=== PATIENT | male | born 1965 | race African-American/Black ===

== ENCOUNTER 2024-09-08 23:59 | Inpatient (IN) | payer BC, MEDICAID, OTHER ==
[~2024-09-08] VITALS: Ht 165.1 cm; Wt 674.5 kg
[2024-09-09] MEDS: IBUPROFEN 600MG TABLET PO ONE (00:30)
[2024-09-09] MEDS ORDERED: VANCOMYCIN 1000MG/250ML 250 ML IV ONE (00:30)
[2024-09-09] MEDS ORDERED: VANCOMYCIN 1GM PMX (XELLIA) 200 ML IV NR (00:45)
[2024-09-09 00:51] LABS: BASOPHILS % 0.4 % (0.0-2.0); EOSINOPHILS % 2.9 % (0.0-5.0); HEMATOCRIT. 43.6 % (42.0-52.0); HEMOGLOBIN. 14.5 g/dL (14.0-18.0); LYMPHOCYTES % 22.4 % (20.0-50.0); MEAN CORPUSCULAR HEMOGLOBIN 31.1 pg (28.0-32.0); MEAN CORPUSCULAR HGB CONC 33.2 g/dL (31.0-37.0); MEAN CORPUSCULAR VOLUME 93.6 fL (80.0-94.0); MEAN PLATELET VOLUME 7.2 fl (7.4-10.4); MONOCYTES % 8.2 % (2.0-8.0); NEUTROPHILS % 66.1 % (40.0-76.0); PLATELET 209 x1000/uL (130-400); RED BLOOD CELL COUNT 4.65 mill/uL (4.7-6.1); RED CELL DISTRIBUTION WIDTH 13.6 % (11.6-14.6); WHITE BLOOD COUNT 7.8 x1000/uL (4.5-11.0)
[2024-09-09 00:58] LABS: CHLORIDE 107 mEq/L (98-107); POTASSIUM 3.9 mEq/L (3.5-5.1); SODIUM 141 mEq/L (136-145)
[2024-09-09 00:59] LABS: CALCIUM 9.4 mg/dL (8.7-10.4); CARBON DIOXIDE 30 mEq/L (21-32)
[2024-09-09 01:03] LABS: URIC ACID 5.2 mg/dL (3.7-9.2)
[2024-09-09 01:04] LABS: CREATININE 1.1 mg/dL (0.6-1.3); GLUCOSE 108 mg/dL (70-105); UREA NITROGEN BLOOD 10 mg/dL (9-23)
[2024-09-09 01:06] LABS: ALANINE AMINOTRANSFERASE 22 IU/L (10-49); ALBUMIN 4.1 g/dL (3.2-4.8); ASPARTATE AMINOTRANSFERASE 25 IU/L (<34); BILIRUBIN TOTAL 0.2 mg/dL (0.1-1.0); PROTEIN TOTAL 6.9 g/dL (6.0-8.3)
[2024-09-09] MEDS: MORPHINE SULFATE 4 MG/ML INJ (FOR IV/IM USE) IV ONE (01:15)
[2024-09-09 01:31] LABS: INR 0.9; PROTHROMBIN TIME 10.5 sec (9.6-11.0)
[2024-09-09] MEDS: IBUPROFEN 600MG TABLET PO NR (01:57)
[2024-09-09 02:10] LABS: ERYTHROCYTE SEDIMENTATION RATE 8 mm/hr (0-20)
[2024-09-09] MEDS ORDERED: ONDANSETRON HCL 4MG/2ML INJ IV PRN (02:15)
[2024-09-09] MEDS ORDERED: GUAIFENESIN 200MG/10ML SUGAR FREE UDC PO PRN (02:15)
[2024-09-09] MEDS ORDERED: DOCUSATE SODIUM 100MG CAPSULE PO PRN (02:15)
[2024-09-09] MEDS ORDERED: ACETAMINOPHEN 325MG TABLET PO PRN ×2 (02:15)
[2024-09-09] MEDS ORDERED: IPRATROPIUM/ALBUTEROL 0.5-3(2.5)MG/3ML NEB HHN PRN (02:15)
[2024-09-09 04:30] VITALS: BP 132/72; PULSE 73; RESP 18; TEMP 37.28076; O2SAT 99
[2024-09-09] MEDS: MORPHINE SULFATE 2 MG/ML INJ (NOT FOR IM USE) IV PRN (05:58)
[2024-09-09] MEDS: DEXT 5%/0.45% NACL 1000ML 1,000 ML IV SCH (07:32)
[2024-09-09] MEDS: IPRATROPIUM/ALBUTEROL 0.5-3(2.5)MG/3ML NEB HHN SCH (08:15)
[2024-09-09 10:10] LABS: BASOPHILS % 0.2 % (0.0-2.0); EOSINOPHILS % 1.7 % (0.0-5.0); HEMATOCRIT. 46.4 % (42.0-52.0); HEMOGLOBIN. 14.7 g/dL (14.0-18.0); LYMPHOCYTES % 12.4 % (20.0-50.0); MEAN CORPUSCULAR HEMOGLOBIN 29.6 pg (28.0-32.0); MEAN CORPUSCULAR HGB CONC 31.8 g/dL (31.0-37.0); MEAN CORPUSCULAR VOLUME 93.2 fL (80.0-94.0); MEAN PLATELET VOLUME 7.8 fl (7.4-10.4); MONOCYTES % 6.6 % (2.0-8.0); NEUTROPHILS % 79.1 % (40.0-76.0); PLATELET 192 x1000/uL (130-400); RED BLOOD CELL COUNT 4.98 mill/uL (4.7-6.1)
[2024-09-09 10:12] LABS: CHLORIDE 108 mEq/L (98-107); POTASSIUM 4.2 mEq/L (3.5-5.1); SODIUM 141 mEq/L (136-145)
[2024-09-09 10:13] LABS: CARBON DIOXIDE 27 mEq/L (21-32)
[2024-09-09 10:14] LABS: CALCIUM 9.4 mg/dL (8.7-10.4)
[2024-09-09 10:19] LABS: CREATININE 0.9 mg/dL (0.6-1.3); GLUCOSE 78 mg/dL (70-105); UREA NITROGEN BLOOD 9 mg/dL (9-23)
[2024-09-09 12:00] VITALS: BP 118/64; PULSE 68; RESP 18; TEMP 36.72516; O2SAT 100
[2024-09-09] MEDS: ENOXAPARIN 40MG/0.4ML SYR SUBCUT SCH (13:13)
[2024-09-09 13:30] VITALS: BP 130/74; PULSE 68; RESP 18; TEMP 36.5848
[2024-09-09] MEDS ORDERED: NALOXONE HCL 0.4MG/ML VIAL IV PRN (14:15)
[2024-09-09 16:00] VITALS: BP 125/70; PULSE 71; RESP 18; TEMP 36.50292; O2SAT 99
[2024-09-09 20:00] VITALS: BP 127/81; PULSE 106; RESP 18; TEMP 36.114; O2SAT 100
[2024-09-09] MEDS: FAMOTIDINE 20MG TABLET PO SCH (20:30)
[2024-09-09 22:47] LABS: CLARITY URINE CLEAR (CLEAR); COLOR URINE YELLOW (YELLOW); GLUCOSE URINE NEGATIVE (NEGATIVE); KETONES URINE NEGATIVE (NEGATIVE); LEUKOCYTE ESTERASE URINE NEGATIVE (NEGATIVE); NITRITE URINE NEGATIVE (NEGATIVE); OCCULT BLOOD URINE NEGATIVE (NEGATIVE); PROTEIN URINE NEGATIVE (NEGATIVE); SPECIFIC GRAVITY URINE 1.011 (1.005-1.030); UROBILINOGEN URINE 0.2 E.U./dL (0.2-1.0)
[2024-09-09 23:13] LABS: *AMPHETAMINES SCREEN URINE NEGATIVE (NEGATIVE); *BARBITURATES SCREEN URINE NEGATIVE (NEGATIVE); *BENZODIAZEPINES SCREEN URINE NEGATIVE (NEGATIVE); *COCAINE SCREEN URINE PRESUMPTIVE POSITIVE (NEGATIVE); CANNABINOID URINE SCREEN NEGATIVE (NEGATIVE); ECSTASY MDMA SCREEN URINE NEGATIVE (NEGATIVE); METHADONE URINE SCREEN NEGATIVE (NEGATIVE); OPIATES URINE SCREEN NEGATIVE (NEGATIVE); PHENCYCLIDINE URINE SCREEN NEGATIVE (NEGATIVE)
[2024-09-10] VITALS: BP 108/63; PULSE 93; RESP 18; TEMP 36.3918; O2SAT 100
[2024-09-10 04:00] VITALS: BP 118/63; PULSE 73; RESP 18; TEMP 36.50292; O2SAT 100
[2024-09-10 07:00] LABS: BASOPHILS % 0.3 % (0.0-2.0); EOSINOPHILS % 1.6 % (0.0-5.0); HEMATOCRIT. 44.2 % (42.0-52.0); HEMOGLOBIN. 14.5 g/dL (14.0-18.0); LYMPHOCYTES % 12.5 % (20.0-50.0); MEAN CORPUSCULAR HEMOGLOBIN 30.4 pg (28.0-32.0); MEAN CORPUSCULAR HGB CONC 32.7 g/dL (31.0-37.0); MEAN CORPUSCULAR VOLUME 92.9 fL (80.0-94.0); MEAN PLATELET VOLUME 7.7 fl (7.4-10.4); MONOCYTES % 9.2 % (2.0-8.0); NEUTROPHILS % 76.4 % (40.0-76.0); PLATELET 199 x1000/uL (130-400); RED BLOOD CELL COUNT 4.76 mill/uL (4.7-6.1); RED CELL DISTRIBUTION WIDTH 13.5 % (11.6-14.6); WHITE BLOOD COUNT 9.9 x1000/uL (4.5-11.0)
[2024-09-10 07:18] LABS: CALCIUM 9.2 mg/dL (8.7-10.4); CHLORIDE 105 mEq/L (98-107); SODIUM 139 mEq/L (136-145)
[2024-09-10 07:19] LABS: CARBON DIOXIDE 26 mEq/L (21-32)
[2024-09-10 07:24] LABS: CREATININE 0.8 mg/dL (0.6-1.3); GLUCOSE 103 mg/dL (70-105); UREA NITROGEN BLOOD 9 mg/dL (9-23)
[2024-09-10 08:00] VITALS: BP 124/70; PULSE 89; RESP 19; TEMP 36.50292; O2SAT 99
[2024-09-10 12:00] VITALS: BP 121/77; PULSE 91; RESP 20; TEMP 36.22512; O2SAT 100
[2024-09-10 14:10] VITALS: BP 121/77; PULSE 91; TEMP 97.2; O2SAT 100
== END 2024-09-10 15:30 | disposition home or self-care (01) | DRG 342 ==
LOC: ER 23:59 → 5WST 09-09 01:10 → EDBEDREQTM 09-09 01:15 → EDBEDREQ 09-09 01:15 → 6WST 09-09 12:15
PROVIDERS: ADMIT Hospitalist; ATTEND Hospitalist
DX: S82.841A Displaced bimalleolar fracture of right lower leg, initial encounter for closed fracture (principal); F19.10 Other psychoactive substance abuse, uncomplicated; Z59.00 Homelessness unspecified; X58.XXXA Exposure to other specified factors, initial encounter; Y93.89 Activity, other specified; Y92.89 Other specified places as the place of occurrence of the external cause; Y99.8 Other external cause status
CPT/HCPCS: 36415; 73610; 73700; 80048; 80053; 80305; 81003; 84550; 85025; 85651; 86850; 86900; 99285; J1650; J2270; J3370

== ENCOUNTER 2024-09-15 01:38 | Emergency (ER) | payer MEDICAID ==
[~2024-09-15] VITALS: Ht 172.7 cm; Wt 78.0 kg
[2024-09-15 01:41] VITALS: TEMP 97.5; O2SAT 97
[2024-09-15 01:55] VITALS: BP 124/72; PULSE 63; RESP 16; O2SAT 98
== END 2024-09-15 04:42 | disposition home or self-care (01) ==
LOC: ER 01:38
DX: K40.90 Unilateral inguinal hernia, without obstruction or gangrene, not specified as recurrent (principal)
CPT/HCPCS: 99283; Z7610